=== PATIENT | male | born 1965 | race Asian ===

== ENCOUNTER 2017-08-10 15:15 | Emergency (ER) | payer OTHER, MEDICAID ==
[~2017-08-10] VITALS: Ht 160 cm; Wt 63.5 kg
--- NOTE | 2017-08-10 16:54 | NUR ---
[facility] CALL[facility], AWAITING CALL BACK FROM
--- NOTE | 2017-08-10 18:39 | NUR ---
[facility] CALLED BACK WITH TRANSFER INFORMATION. PT IS BEING TRANSFERED TO [facility]. ADMITTING PHYSICIAN WILL BE PRIYANKA. ETA FOR [facility] IS [phone]
[2017-08-10 19:23] VITALS: BP 119/83
--- NOTE | 2017-08-10 19:24 | NUR ---
REPORT GIVEN TO NOLAN TRENT AT [facility] ER AT 1845. REPORT GIVEN TO EMT FOR TRANSPORT. TRANSFERRED IN STABLE CONDITION TO [facility] WITH ALL PAPERWORK AND BELONGINGS.
== END 2017-08-10 19:26 | disposition short-term general hospital (02) ==
LOC: ER 15:17
DX: R06.03 Acute respiratory distress (principal); I10 Essential (primary) hypertension; G20 Parkinson's disease
CPT/HCPCS: A4606; Z7610

== ENCOUNTER 2020-01-24 13:41 | Inpatient (IN) | payer OTHER ==
[~2020-01-24] VITALS: Ht 165.1 cm; Wt 53.5 kg
[2020-01-24] MEDS ORDERED: ACETAMINOPHEN ES 500 MG TABLET PO ONE (14:30)
[2020-01-24] MEDS ORDERED: IV NS 0.9% 1,000 ML BAG IV ONE (14:30)
[2020-01-24] MEDS ORDERED: PIPERACILLIN /TAZOBACTAM 3.375 G in IV D5W 50 ML IV ONE (14:30)
[2020-01-24] MEDS ORDERED: VANCOMYCIN 1 GM in IV D5W 250 ML IV ONE (14:30)
[2020-01-24 14:41] LABS: BASOPHILS % (AUTO) 0.1 % (0.0-2.0); HEMATOCRIT 49 % (39-51); HEMOGLOBIN 16.3 g/dL (13.5-17.5); LYMPHOCYTES # (AUTO) 0.6 /CMM (0.8-4.8); LYMPHOCYTES % (AUTO) 7.2 % (20.0-44.0); MEAN CORPUSCULAR HGB CONC 33 g/dl (31.0-36.0); MEAN CORPUSCULAR VOLUME 85 fL (80-96); MONOCYTES % (AUTO) 11.5 % (2.0-12.0); NEUTROPHILS # (AUTO) 6.8 /CMM (1.8-8.9); NEUTROPHILS % (AUTO) 81.2 % (43.0-81.0); PLATELET COUNT (AUTO) 152 /CMM (150-450); RED BLOOD CELL COUNT(AUTO) 5.78 MIL/uL (4.5-6.0); WHITE BLOOD COUNT (AUTO) 8.4 K/uL (4.3-11.0)
--- NOTE | 2020-01-24 14:47 | NUR ---
RADHA FROM [facility]. TO ER BED 7. AAOX0. BREATHING EVEN AND UNLABORED BUT NOTED O2 SAT @ 92% ON RA. BEDBOUND. BROUGHT IN FOR FEVER ABD TACHYCARDIA. PT WAS NOTED WITH RECTAL TEMP OF 102.0. HR NOTED AT 120'S. ON MMONITOR, IV LINE OBTAINED ON LFA 18G, BLOOD DRAWNA ND GIVEN TO FACILITIES MAINTENANCE MANAGER AT BEDSIDE. AWAS AT BEDSIDE FOR EVAL. ORDERS RECEIVED NOTED AND CARRIED OUT. WILL CONTINUE TO MONITOR PT.
[2020-01-24 14:51] LABS: BILIRUBIN,URINE MODERATE (NEGATIVE); BLOOD, URINE Moderate Ery/uL (NEGATIVE); KETONES,URINE 40 (NEGATIVE); LEUKOCYTE ESTERASE ,URINE Negative (NEGATIVE); NITRITE, URINE Negative (NEGATIVE); PH,URINE 5.5 (5.0-8.0); PROTEIN,URINE >=300 mg/dl (NEGATIVE); UGLUCOSE Negative (NEGATIVE)
[2020-01-24 14:53] LABS: APPEARANCE,URINE CLOUDY (CLEAR); COLOR,URINE DARK YELLOW (YELLOW)
[2020-01-24 14:54] LABS: BACTERIA,URINE Few /HPF (None Seen); CALCIUM, SERUM 8.6 mg/dL (8.5-10.1); CARBON DIOXIDE 25 mmol/L (21-32); CHLORIDE 108 mmol/L (98-107); CREATININE 1.1 mg/dL (0.6-1.3); GLUCOSE 129 mg/dL (74-106); POTASSIUM 4.1 mmol/L (3.5-5.1); RBC,URINE 81-100 /HPF (0-2); SODIUM SERUM 144 mmol/L (136-145); UREA NITROGEN, BLOOD 39 mg/dL (7-18)
[2020-01-24 14:55] LABS: MUCUS,URINE Moderate /LPF (None Seen); SQUAMOUS EPITHELIAL CELL,UR Moderate /HPF (None Seen)
--- NOTE | 2020-01-24 14:56 | NUR ---
TYLENOL 1000MG PO CHANGED TO TYLENOL 1000MG RECTAL SUPP PER
--- NOTE | 2020-01-24 14:57 | NUR ---
CALLED [facility] FOR SNAPSHOT. WILL CALL BACK WHEN READY TO PRESENT.
[2020-01-24 15:00] LABS: ALANINE AMINOTRANSFERASE 50 U/L (12-78); ALBUMIN 3.3 g/dL (3.4-5.0); ALKALINE PHOSPHATASE 89 U/L (46-116); ASPARTATE AMINOTRANSFERASE 57 U/L (15-37); B-TYPE NATRIURETIC PEPTIDE 618 PG/ML (0-125); BILIRUBIN,TOTAL 0.9 mg/dL (0.2-1.0); TOTAL PROTEIN, SERUM 7.3 g/dL (6.4-8.2)
[2020-01-24] MEDS ORDERED: ACETAMINOPHEN 650 MG/SUPP.RECT RC ONE (15:00)
[2020-01-24 15:20] LABS: D-DIMER 0.61 mg/L(FEU (0.17-0.50)
--- NOTE | 2020-01-24 15:34 | NUR ---
CALLED [facility] FOR PEER TO PEER.
[2020-01-24 15:47] LABS: C-REACTIVE PROTEIN 12.8 mg/dL (0.0-0.9)
[2020-01-24 15:50] LABS: CREATINE KINASE, TOTAL 200 U/L (39-308); FERRITIN 3309 ng/mL (8-388)
--- NOTE | 2020-01-24 16:22 | NUR ---
NURSING SUP GAVE BED 106.
--- NOTE | 2020-01-24 16:35 | NUR ---
PAGED [facility].
--- NOTE | 2020-01-24 17:02 | NUR ---
REPORT GIVEN TO TWAN SESAY FOR [facility].
[2020-01-24 17:26] LABS: BILIRUBIN,DIRECT 0.3 mg/dL (0.0-0.2)
[2020-01-24] MEDS ORDERED: ACET-2605 PO (18:00)
[2020-01-24] MEDS ORDERED: ASCO500T20 PO (18:00)
[2020-01-24] MEDS ORDERED: CALC1TAB30 PO (18:00)
[2020-01-24] MEDS ORDERED: CHOL200013 PEG (18:00)
[2020-01-24] MEDS ORDERED: MULT-439 PO (18:00)
[2020-01-24] MEDS ORDERED: ZINC1CAP3 PO (18:00)
[2020-01-24] MEDS ORDERED: METO25TA4 PO (18:00)
[2020-01-24] MEDS ORDERED: ACET325T53 PO (18:00)
[2020-01-24] MEDS ORDERED: ROPI0.252 PO (18:00)
[2020-01-24] MEDS ORDERED: AMIN887L PO (18:00)
[2020-01-24] MEDS ORDERED: GABA300C PO (18:00)
[2020-01-24] MEDS ORDERED: QUET25TA PO (18:00)
[2020-01-24] MEDS ORDERED: ALEN70TA3 GT (18:00)
--- NOTE | 2020-01-24 18:55 | NUR ---
PT TRANSPORTED TO UNIT ON [facility] WITH EMT AND RN AT BEDSIDE W. ACLS PROTOCOL. NAD NOTED.
[2020-01-24] MEDS ORDERED: MAGNESIUM HYDROXIDE 30 ML UDC PO PRN (19:00)
[2020-01-24] MEDS ORDERED: ACETAMINOPHEN 325 MG TABLET PO PRN (19:00)
[2020-01-24] MEDS ORDERED: ONDANSETRON HCL/PF 4 MG/2 ML VIAL IVP PRN (19:00)
[2020-01-24] MEDS ORDERED: MAG HYDROX/AL HYDROX/SIMETH 30 ML UDC PO PRN (19:00)
[2020-01-24] MEDS ORDERED: Z GUARD REMEDY 2 OZ OINT TP PRN (19:00)
[2020-01-24] MEDS ORDERED: FEE PK DOSING 1 MIN EA MC ONE (19:00)
[2020-01-24 19:02] VITALS: BP 147/104
[2020-01-24 19:37] LABS: ABG BASE EXCESS 1.1 mmol/L; ABG PCO2 38.8 mmHg (35.0-45.0); ABG PH 7.432 (7.350-7.450); ABG PO2 81.2 mmHg (75.0-100.0); AaDO2 22.1 mmHg; COHb 0.2 % (0.5-1.5); MetHb 0.3 % (0.0-1.5); O2Hb 95.5 % (94.0-97.0); SITE, ABG Right Radial; VENT MODE, BG ROOM AIR 21%
[2020-01-24 20:00] VITALS: BP 142/92
[2020-01-24] MEDS: ENOXAPARIN SODIUM 40 MG/0.4 ML DISP.SYRIN SQ SCH (21:31)
[2020-01-24] MEDS: PROSTAT (PYXIS) 30 ML UDC PO SCH (21:32)
[2020-01-24] MEDS: PIPERACILLIN /TAZOBACTAM 3.375 G in IV D5W 50 ML IV SCH (21:32)
[2020-01-24 22:00] VITALS: BP 141/88
[2020-01-25] VITALS (8 sets, daily range): BP systolic 138–169; BP diastolic 80–102
[2020-01-25] MEDS: VANCOMYCIN 1 GM in IV D5W 250 ML IV SCH ×2 (02:36→14:08)
[2020-01-25] MEDS: PIPERACILLIN /TAZOBACTAM 3.375 G in IV D5W 50 ML IV SCH ×4 (03:24→20:06)
[2020-01-25] MEDS: IV NS 0.9% 1,000 ML IV PRN ×2 (05:00→13:15)
[2020-01-25 06:22] LABS: HEMATOCRIT 43 % (39-51); HEMOGLOBIN 14.4 g/dL (13.5-17.5); LYMPHOCYTES # (AUTO) 0.6 /CMM (0.8-4.8); LYMPHOCYTES % (AUTO) 8.5 % (20.0-44.0); MEAN CORPUSCULAR HGB CONC 33 g/dl (31.0-36.0); MEAN CORPUSCULAR VOLUME 85 fL (80-96); MONOCYTES # (AUTO) 0.7 /CMM (0.1-1.30); MONOCYTES % (AUTO) 9.2 % (2.0-12.0); NEUTROPHILS % (AUTO) 82.3 % (43.0-81.0); PLATELET COUNT (AUTO) 144 /CMM (150-450); RED BLOOD CELL COUNT(AUTO) 5.11 MIL/uL (4.5-6.0); WHITE BLOOD COUNT (AUTO) 7.3 K/uL (4.3-11.0)
--- NOTE | 2020-01-25 06:30 | NUR ---
CRISTIAN RN NOTES PT IS UNABLE TO SWALLOW MEDS. ST SWALLOW TEST ORDER PLACED. PT UNABLE TO SWALLOW HIS SPIT, HENCE, NGT INSERTION WAS NOT SUCCESSFUL. MD AWARE. NPO STATUS REMAINS. NO NEW ORDERS RECEIVED. NAD AND NO SOB NOED. WILL CONT TO MONITOR
[2020-01-25 06:32] LABS: CALCIUM, SERUM 7.4 mg/dL (8.5-10.1); CREATININE 0.8 mg/dL (0.6-1.3); MAGNESIUM 2.4 mg/dL (1.8-2.4); PHOSPHORUS 1.9 mg/dL (2.5-4.9); POTASSIUM 3.7 mmol/L (3.5-5.1)
[2020-01-25] MEDS ORDERED: ACETAMINOPHEN 650 MG/SUPP.RECT RC PRN (06:32)
[2020-01-25 06:34] LABS: THYROID STIMULATING HORMONE 0.078 uIU/mL (0.358-3.74)
[2020-01-25] MEDS: ASCORBIC ACID 500 MG TABLET PO SCH (09:00)
[2020-01-25] MEDS: ropiniROLE 0.5 MG TABLET PO SCH ×3 (09:00→17:00)
[2020-01-25] MEDS: METOPROLOL SUCCINATE 25 MG TAB.SR.24H PO SCH (09:00)
[2020-01-25] MEDS: ZINC SULFATE 220 MG CAPSULE PO SCH (09:00)
[2020-01-25] MEDS: MULTIVIT W/MINERALS 1 TAB TABLET PO SCH (09:00)
[2020-01-25] MEDS: CALCIUM CARB 250MG /VITAMIN D 1 UDTAB PO SCH (09:00)
[2020-01-25] MEDS: CHOLECALCIFEROL 1,000 UNIT TABLET (VIT D3) PO SCH (09:00)
[2020-01-25] MEDS ORDERED: Sodium Phosphate 15 MMOL in IV NS 0.9% 245 ML IV SCH (13:00)
--- NOTE | 2020-01-25 14:53 | NUR ---
unable to insertion n/g tube at this time failed swallow test by speech therapist and stated that will come tomorrow re check, DAVID VILLARREAL notified via [employer] [phone] unable to reach him at this time waiting for returning call back
--- NOTE | 2020-01-25 15:15 | NUR ---
Dr Polk came to see the patient and stated will recheck swallow eval tomorrow exam to patient at this time will contiue to assess and evaluate
--- NOTE | 2020-01-25 17:15 | NUR ---
RN NOTES REPORT RECEILVED , CONTINUE TO MONITOR PT .
[2020-01-25] MEDS ORDERED: ENOX40DI SQ (18:01)
[2020-01-25] MEDS ORDERED: PIPE3.379 IV (18:01)
[2020-01-25] MEDS ORDERED: RXVAN XX (18:01)
[2020-01-25] MEDS ORDERED: VANC1PLA9 IV (18:01)
--- NOTE | 2020-01-25 18:17 | NUR ---
RN NOTES NO SIGNIFICANT CHANGES NOTED WILL ENDORSE TO CANDY BAR ATTENDANT NURSE FOR CONTIGUITY OF CARE.
--- NOTE | 2020-01-25 20:00 | NUR ---
RECEIVED PATIENT ON BED A/OX1 UNABLE TO MAKE NEEDS KNOWN. ON O2 OF 2L VIA NC; SATING 98% ON TELE OF SR- 83. NO SOB AND NO DISTRESS. VITAL SIGNS STABLE, AFEBRILE. NO COMPLAINS OF PAIN; NO FACIAL GRAMACES NOTED. DUE MEDS GIVEN ORDERED. RECEIVED A CALL FROM AMRITA FROM [facility] ADVISING PT TO BE TRANSFERRED LONG INSTEAD OF TODAY. SHE WILL INFORM PT'S FAMILY PT IS CONFUSED. KEPT PT COMFORTABLE AND WILL KEEP TO MONITORING. ABOVE IVF OF NS @75CC/HR INFUSING WELL.
[2020-01-25] MEDS: ENOXAPARIN SODIUM 40 MG/0.4 ML DISP.SYRIN SQ SCH (20:06)
[2020-01-25] MEDS: PROSTAT (PYXIS) 30 ML UDC PO SCH (22:00)
[2020-01-26] VITALS (7 sets, daily range): BP systolic 149–174; BP diastolic 93–112
[2020-01-26] MEDS: VANCOMYCIN 1 GM in IV D5W 250 ML IV SCH (02:14)
[2020-01-26] MEDS: PIPERACILLIN /TAZOBACTAM 3.375 G in IV D5W 50 ML IV SCH ×4 (03:07→21:29)
[2020-01-26] MEDS: IV NS 0.9% 1,000 ML IV PRN (03:24)
--- NOTE | 2020-01-26 06:01 | NUR ---
TRAINING PROFESSIONAL - CLOSING NOTES PATIENT IN BED RESTING COMFORTABLY. PATIENT IN NO ACUTE DISTRESS. NO SOB NOTED, PT BREATHING IS EVEN AND UNLABORED. PT BREATHING ON OXYGEN 2L VIA NC SATURATING > 95% SP02. PATIENT ON CARDIAC MONITORING READING SINUS RHYTHM HR IS @68. PATIENT IS CLEAN , DRY AND COMFORTABLE THROUGHOUT THE SHIFT.NEEDS AND CONCERNS ADDRESSED. SAFETY MEASURES INPLACED. PATIENT BED IS LOCKED AND IN LOWEST POSITION. SIDE RAILS UP. CALL LIGHT WIHTIN REACH OF THE PATIENT. WILL ENDORSE TO AM SHIFT
[2020-01-26 06:38] LABS: BASOPHILS % (AUTO) 0.1 % (0.0-2.0); HEMATOCRIT 41 % (39-51); HEMOGLOBIN 13.6 g/dL (13.5-17.5); LYMPHOCYTES # (AUTO) 0.6 /CMM (0.8-4.8); LYMPHOCYTES % (AUTO) 7.2 % (20.0-44.0); MEAN CORPUSCULAR HGB CONC 33 g/dl (31.0-36.0); MEAN CORPUSCULAR VOLUME 85 fL (80-96); MONOCYTES # (AUTO) 0.5 /CMM (0.1-1.30); MONOCYTES % (AUTO) 6.4 % (2.0-12.0); NEUTROPHILS # (AUTO) 6.8 /CMM (1.8-8.9); NEUTROPHILS % (AUTO) 86.3 % (43.0-81.0); PLATELET COUNT (AUTO) 154 /CMM (150-450); RED BLOOD CELL COUNT(AUTO) 4.86 MIL/uL (4.5-6.0); WHITE BLOOD COUNT (AUTO) 7.9 K/uL (4.3-11.0)
[2020-01-26 07:14] LABS: CALCIUM, SERUM 7.2 mg/dL (8.5-10.1); CREATININE 0.7 mg/dL (0.6-1.3); PHOSPHORUS 1.8 mg/dL (2.5-4.9); POTASSIUM 3.1 mmol/L (3.5-5.1)
--- NOTE | 2020-01-26 07:30 | NUR ---
BATTERY STACKER AM NOTES RECEIVED PATIENT IN BED A/OX1 UNABLE TO MAKE NEEDS KNOWN. ON O2 OF 2L VIA NC; SATING 98% ON TELE OF SR- 83. NO SOB AND NO DISTRESS. LEFT WRIST G18 HL AND R FA G18 WITH NS AT 75 ML/HR RUNNING, BOTH SITES CLEAR, REMAINS NPO, FOR SWALLOW EVAL TODAY. PULLIAM CATH IN PLACE WITH YELLOW COLORED URINE DRAINING BY GRAVITY. FOR POSSIBLE TRANSFER TO [place] TODAY. SEE NURSING FLOWSHEET FOR SKIN ISSUES. WILL TURN AND REPOSITION Q 2 HOURS. KEPT PT COMFORTABLE. SAFETY MEASURES IN PLACE. CALL LIGHT WITHIN REACH. WILL CONT TO MONITOR.
[2020-01-26] MEDS: CALCIUM CARB 250MG /VITAMIN D 1 UDTAB PO SCH ×2 (08:23→09:00)
[2020-01-26] MEDS: CHOLECALCIFEROL 1,000 UNIT TABLET (VIT D3) PO SCH ×2 (08:24→09:00)
[2020-01-26] MEDS: ASCORBIC ACID 500 MG TABLET PO SCH ×2 (08:25→09:00)
[2020-01-26] MEDS: ropiniROLE 0.5 MG TABLET PO SCH ×4 (08:25→16:52)
[2020-01-26] MEDS: METOPROLOL SUCCINATE 25 MG TAB.SR.24H PO SCH ×2 (08:25→09:00)
[2020-01-26] MEDS: MULTIVIT W/MINERALS 1 TAB TABLET PO SCH ×2 (08:25→09:00)
[2020-01-26] MEDS: ZINC SULFATE 220 MG CAPSULE PO SCH ×2 (09:00→09:23)
--- NOTE | 2020-01-26 09:17 | NUR ---
WOUND CARE CONSULT: REVIEWED CHART, NURSING DOCUMENTATION AND PHOTOS WHICH SHOW SACRAL WOUND, PRESENT ON ADMISSION. RECOMMEND SURGICAL CONSULT. DR WYATT NOTIFIED OF CONSULT REQUEST. SKIN PROTECTION RECOMMENDATIONS MADE AND DISCUSSED WITH NURSING STAFF. WILL SEE PRN. HUERTA IN AGREEMENT WITH PLAN OF CARE.
--- NOTE | 2020-01-26 09:48 | NUR ---
medication administration at 0900 ATTEMPTED TO ADMINISTER MEDICATION BUT THE PATIENT IS UNABLE TO SWALLOW. WILL NOTIFY THE MD.
--- NOTE | 2020-01-26 10:15 | NUR ---
RN NOTE PATIENT SEEN BY EDITH MENDEZ FOR SWALLOW EVAL. PER HER SEVERELY DELAYED SWALLOWED REFLEX, HE HAS TO CONTINUE NPO. SHE WILL CONTINUE MOUNA VILLARREAL NP.
[2020-01-26] MEDS: POTASSIUM CL. PREMIX PERIPHER. 50 ML IV SCH ×4 (11:14→14:47)
[2020-01-26 11:37] LABS: ABG BASE EXCESS 1.3 mmol/L; ABG OXYGEN SATURATION 96.5 % (92.0-98.5); ABG PCO2 31.3 mmHg (35.0-45.0); ABG PH 7.497 (7.350-7.450); ABG PO2 83.6 mmHg (75.0-100.0); AaDO2 79.1 mmHg; COHb 0.6 % (0.5-1.5); MetHb 0.4 % (0.0-1.5); O2Hb 95.5 % (94.0-97.0); SITE, ABG Right Radial; VENT MODE, BG 2L NC
[2020-01-26] MEDS ORDERED: VANCOMYCIN 1 GM in IV D5W 250 ML IV SCH (15:00)
--- NOTE | 2020-01-26 16:00 | NUR ---
RN NOTES RECEIVED A CALL FROM [facility]. WILL FAX REQUIRED DOCUMENTS AND WILL FACILITATE TRANSFER ALEX. INFORMED THEM OF ELEVATED BP 174/103. WILL CALL BACK.
[2020-01-26] MEDS ORDERED: hydrALAZINE HCL IV 20 MG VIAL IV ONE (16:30)
--- NOTE | 2020-01-26 16:38 | NUR ---
RN NOTES BP 174/103. AMIRAH VILLARREAL BILINGUAL BRANCH MANAGER NOTIFIED. ORDERED TO GIVE HYDRALAZINE 10MG IV X 1 DOSE.
[2020-01-26] MEDS ORDERED: Sodium Phosphate 15 MMOL in IV NS 0.9% 245 ML IV SCH (17:00)
--- NOTE | 2020-01-26 18:11 | NUR ---
RN NOTES BP RECEHECKED. 159/51
--- NOTE | 2020-01-26 18:13 | NUR ---
RN NOTES PLACED A CALL TO [facility] RN CM. NOT AVAILABLE AT THIS TIME BUT ACCORDING TO STAFF, THEY ARE WORKING ON THE PATIENT'S CASE AND WILL TRANSFER TONIGHT. WILL CALL BACK.
--- NOTE | 2020-01-26 19:26 | NUR ---
RN CLOSING NOTES PATIENT IS RESTING ON BED. VS TABLE WITH TACHYCARDIC EPISODES. TELEMONITOR IN PLACE, PATIENT IS SR HR 88. PATIENT HAS NO RESPIRATORY DISTRESS. PATIENT SKIN IS INTACT. SOME SACRAL REDNESS. PATIENT IS ON NC ON 2L OF O2. PATIENT HAS IV 18G ON LFA AND 18G ON RFA. BOTH IVs ARE FLUSHING WELL. ALL SAFETY MECHANISMS ARE IN PLACE, CALL LIGHT WITHIN REACH, BED RAILS UP X2. WILL ENDORSE THE INCOMING MONITOR TO CONTINUE CARE.
[2020-01-26] MEDS: ENOXAPARIN SODIUM 40 MG/0.4 ML DISP.SYRIN SQ SCH (21:32)
--- NOTE | 2020-01-26 22:40 | NUR ---
rn notes Received patient in bed, comfortably resting with no apparent distress. Breathing even and unlabored. On 2 lpm via nasal cannula tolerating well. No physical manifestation of pain or discomfort. Alert with continued lethargy but easily arousabble. Had 1 BM, large, formed. Received call from [place] for continuous pickling line pickler to transfer to [facility]. Ambulance arrived and took the patient at 2230 in stable condition with wnl vital signs. Documents given to ambulance including CD copy of films/images. Endorsement to [place] was given by Charge Nurse Fidelina.
== END 2020-01-26 23:05 | disposition short-term general hospital (02) | DRG 871 ==
LOC: ER 13:55 → TELE-TD 17:38 → TELE1 01-25 19:15
PROVIDERS: ADMIT Nurse Practitioner Acute Care; ATTEND Nurse Practitioner Acute Care
DX: A41.89 Other specified sepsis (principal); G93.41 Metabolic encephalopathy; U07.1 COVID-19; J12.89 Other viral pneumonia; J98.11 Atelectasis; N17.9 Acute kidney failure, unspecified; G20 Parkinson's disease; I10 Essential (primary) hypertension; E86.0 Dehydration; M81.0 Age-related osteoporosis without current pathological fracture; G47.00 Insomnia, unspecified; Z79.899 Other long term (current) drug therapy; Y95 Nosocomial condition; F32.9 Major depressive disorder, single episode, unspecified; R13.10 Dysphagia, unspecified; E87.6 Hypokalemia; I70.0 Atherosclerosis of aorta; D69.6 Thrombocytopenia, unspecified
CPT/HCPCS: 36415; 36600; 71045-TC; 80048-TC; 80053-TC; 80061-TC; 80202-TC; 81000-TC; 82248-TC; 82550-TC; 82728-TC; 82803-TC; 82962-TC; 83605-TC; 83615-TC; 83735-TC; 83880; 84100-TC; 84443-TC; 84484-TC; 85025-TC; 85378-TC; 85385-TC; 85730-TC; 86140-TC; 87040-TC; 87081-TC; 87086-TC; 92526; 92611-TC; A9563; G0378; J0360; J1650; J2543; J3370; J3480; J3490; J7030; J7040; J7050; J7060; U0003-CS

== ENCOUNTER 2021-02-06 20:40 | Emergency (ER) | payer OTHER ==
[~2021-02-06] VITALS: Ht 165.1 cm; Wt 53.5 kg
[~2021-02-06 20:40] MED LIST: ACET-2605 PO; ACET325T53 PO; ALEN70TA3 GT; AMIN887L PO; ASCO500T20 PO; CALC1TAB30 PO; CHOL200013 PEG; ENOX40DI SQ; GABA300C PO; METO25TA4 PO; MULT-439 PO; PIPE3.379 IV; QUET25TA PO; ROPI0.252 PO; RXVAN XX; VANC1PLA9 IV; ZINC1CAP3 PO
--- NOTE | 2021-02-06 20:50 | NUR ---
RADHA FROM [facility] C/O PAIN AND SWELLING R MIDDLE FINGER XRAY 02/06/21 REPORTS DISLOCATION , PT TO BED 4, PT AWAKE/ALERT, DENIES SOB/CP VSS. PENDING ER PROVIDER TATA
[2021-02-06] MEDS ORDERED: LIDOCAINE HCL/PF 1% 30 ML SDV ONE (21:02)
--- NOTE | 2021-02-06 22:03 | NUR ---
[facility] CALLED FOR MD TO MD REPORT.
--- NOTE | 2021-02-06 22:19 | NUR ---
FRITZ HUERTA SPOKE TO DR. CASIANO REGARDING PT.
[2021-02-06] MEDS ORDERED: MORPHINE SULFATE INJ 4 MG/ML DISP.SYRIN ONE (22:21)
[2021-02-06 22:25] LABS: BASOPHILS % (AUTO) 0.7 % (0.0-2.0); EOSINOPHILS % (AUTO) 2.6 % (0.0-6.0); HEMATOCRIT 48 % (39-51); HEMOGLOBIN 15.8 g/dL (13.5-17.5); LYMPHOCYTES # (AUTO) 2.7 /CMM (0.8-4.8); LYMPHOCYTES % (AUTO) 40.2 % (20.0-44.0); MEAN CORPUSCULAR HGB CONC 33 g/dl (31.0-36.0); MEAN CORPUSCULAR VOLUME 88 fL (80-96); MONOCYTES # (AUTO) 0.5 /CMM (0.1-1.30); MONOCYTES % (AUTO) 8.2 % (2.0-12.0); NEUTROPHILS # (AUTO) 3.2 /CMM (1.8-8.9); NEUTROPHILS % (AUTO) 48.3 % (43.0-81.0); PLATELET COUNT (AUTO) 242 /CMM (150-450); RED BLOOD CELL COUNT(AUTO) 5.51 MIL/uL (4.5-6.0); WHITE BLOOD COUNT (AUTO) 6.6 K/uL (4.3-11.0)
[2021-02-06] MEDS ORDERED: MORPHINE SULFATE INJ 2 MG/ML DISP.SYRIN IV ONE (22:30)
[2021-02-06] MEDS ORDERED: ONDANSETRON HCL/PF 4 MG/2 ML VIAL IV ONE (22:30)
[2021-02-06] MEDS ORDERED: VANCOMYCIN 1 GM in IV D5W 250 ML IV ONE (22:30)
[2021-02-06] MEDS ORDERED: VANCOMYCIN 1 GM VIAL ONE (22:31)
[2021-02-06] MEDS ORDERED: ONDANSETRON HCL/PF 4 MG/2 ML VIAL ONE (22:31)
[2021-02-06 22:34] LABS: CALCIUM, SERUM 8.9 mg/dL (8.5-10.1); CREATININE 0.7 mg/dL (0.6-1.3); POTASSIUM 4.3 mmol/L (3.5-5.1)
[2021-02-06] MEDS ORDERED: OLANZAPINE 10 MG VIAL IM ONE ×2 (23:27→23:30)
--- NOTE | 2021-02-06 23:33 | NUR ---
[facility] CALLED REGARDING NEGATIVE COVID RESULT.
--- NOTE | 2021-02-06 23:44 | NUR ---
[facility] CALLED REGARDING NEGATIVE COVID RESULT.
[2021-02-06 23:49] VITALS: BP 138/104
--- NOTE | 2021-02-07 00:37 | NUR ---
TRANSFER INFORMATION: PT WILL BE TRANSFERRED TO [facility] PER INSURANCE REQUEST ACCEPTING MD: DR. CURRIE NUMBER FOR REPORT: [phone] [facility] PRN ETA [id number]
--- NOTE | 2021-02-07 00:48 | NUR ---
REPORT GIVEN MIRANDA TRENT FOR [facility]
--- NOTE | 2021-02-07 01:44 | NUR ---
PT TRANSPORTED VIA PRIVATE AMBULANCE TO [facility]
== END 2021-02-07 01:50 | disposition short-term general hospital (02) ==
LOC: ER 20:40
DX: S63.272A Dislocation of unspecified interphalangeal joint of right middle finger, initial encounter (principal); X58.XXXA Exposure to other specified factors, initial encounter; Y92.129 Unspecified place in nursing home as the place of occurrence of the external cause; G20 Parkinson's disease; F02.80 Dementia in other diseases classified elsewhere, unspecified severity, without behavioral disturbance, psychotic disturbance, mood disturbance, and anxiety; I10 Essential (primary) hypertension; R13.10 Dysphagia, unspecified; M81.0 Age-related osteoporosis without current pathological fracture; Z20.822 Contact with and (suspected) exposure to COVID-19
CPT/HCPCS: 26770; 36415; 73140 ×2; 80048; 85025; 85730; 87040 ×2; 87426; 96365; 96372; 96375; 99285; C9803; J2270; J2405; J3370; J3490 ×2